=== PATIENT | female | born 1940 | race Caucasian/White ===

== ENCOUNTER 2016-10-08 15:37 | Emergency (ER) | payer MEDICARE, BC ==
[2016-10-08] MEDS ORDERED: OPTIRAY 350 100 ML VIAL HMH IV ONE (15:38)
[2016-10-08] MEDS ORDERED: ASPIRIN 81 MG CHEW TAB ONE (16:22)
== END 2016-10-08 20:22 | disposition home or self-care (01) ==
LOC: ER 15:37
DX: R07.2 Precordial pain (principal); R07.89 Other chest pain; R42 Dizziness and giddiness; G44.89 Other headache syndrome; D86.9 Sarcoidosis, unspecified; M19.91 Primary osteoarthritis, unspecified site; I10 Essential (primary) hypertension; Z79.899 Other long term (current) drug therapy; Z79.82 Long term (current) use of aspirin
CPT/HCPCS: 36415; 70450; 71010; 71275; 74175; 80053; 82550; 83735; 84484; 85025; 85610; 85730; 93005; 99285; Q9967